=== PATIENT | male | born 1975 | race African-American/Black ===

== ENCOUNTER 2018-05-12 20:24 | Emergency (ER) | payer OTHER ==
[~2018-05-12] VITALS: Ht 167.6 cm; Wt 99.8 kg
[2018-05-12] MEDS ORDERED: METAXALONE400 MG PO (20:33)
[2018-05-12] MEDS ORDERED: CELEBREX 200 M200 M1 PO (20:34)
[2018-05-12] MEDS ORDERED: ACETAMINOPHEN-1 EAC1 PO (22:17)
[2018-05-12 22:33] VITALS: BP 156/76
== END 2018-05-12 22:36 | disposition home or self-care (01) ==
LOC: M.ERS 20:24
DX: M54.6 Pain in thoracic spine (principal); F17.210 Nicotine dependence, cigarettes, uncomplicated